=== PATIENT | female | born 1975 | race Caucasian/White ===

== ENCOUNTER 2018-09-03 16:13 | Emergency (ER) | payer BC ==
--- NOTE | 2018-09-03 16:15 | ER Report ---
History and Physical Time Seen By MD: 16:16 HPI/ROS CHIEF COMPLAINT: Fluttering in chest HISTORY OF PRESENT ILLNESS: Pt states that she has had daily diarrhea and nausea for a few weeks. Started yesterday with headache and feeling flushed. Today felt her heart is "fluttering". Pulse is not going fast but it feels irregular. Pt denies cardiac hx. pt does state that she was told she has a nodule on her thyroid but is not on any medications for it. no sick contacts. pt states that when she went up the stairs she was more sob and felt fluttering/discomfort in her chest. REVIEW OF SYSTEMS: Constitutional: No fever, no chills. Eyes: No discharge. ENT: No sore throat. Cardiovascular: +chest pain, + palpitations. Respiratory: No cough, + shortness of breath walking up the stairs. Gastrointestinal: No abdominal pain, no vomiting, + nausea and + diarrhea Genitourinary: No hematuria. Musculoskeletal: No back pain. Skin: No rashes. Neurological: + headache. Allergies: Coded Allergies: No Known Drug Allergies (Unverified , 09/03/18) Past Medical/Surgical History Pmhx: bipolar, nodule on thyroid, liden factor V with dvt Pshx: r knee surgery, hysterectomy, , wisdom teeth Reviewed Nurses Notes: Yes Old Medical Records Reviewed: Yes Hx Smoking: Yes Smoking Status: Current: Every Day Smoker Hx Alcohol Use: Yes (socially) Constitutional Vital Sign - Last 24 Hours 09/03/18 16:21 Temp 98.0 Pulse 78 Resp 18 B/P (MAP) 167/98 Pulse Ox 97 O2 Delivery Room Air Physical Exam General Appearance: The patient is alert, has no immediate need for airway protection and no signs of toxicity. Eyes: Pupils equal and round no pallor or injection, EOMI ENT: no pharyngeal erythema or exudates, Mucous membranes are moist Respiratory: There are no retractions, lungs are clear to auscultation. Cardiovascular: Regular rate and rhythm. pulses are equal and symmetrical Gastrointestinal: Abdomen is soft and non tender, no masses, bowel sounds normal, no guarding, no rigidity or rebound Neurological: Cranial nerves II-XII grossly intact, no sensory or motor loss Skin: Warm and dry, no rashes. Musculoskeletal: Neck is supple non tender, no vertebral tenderness Extremities are nontender, non swollen and have full range of motion. DIFFERENTIAL DIAGNOSIS: After history and physical exam differential diagnosis was considered for dehydrated, electrolyte abnl, arrhythmia, influenza, gastroenteritis, anemia Medical Decision Making Data Points Result Diagram: 09/03/18 1638 09/03/18 1638 Laboratory Hematology Test 09/03/18 00:00 09/03/18 16:30 09/03/18 16:38 Magnesium Level 2.2 mg/dl (1.7-2.2) Influenza Virus Type A (PCR) Negative (NEGATIVE) Influenza Virus Type B (PCR) Negative (NEGATIVE) Red Blood Count 4.96 M/uL (4.17-5.56) Mean Corpuscular Volume 91.5 fL (80.0-96.0) Mean Corpuscular Hemoglobin 32.4 pg (26.0-33.0) Mean Corpuscular Hemoglobin Concent 35.4 g/dL (32.0-36.0) Red Cell Distribution Width 13.4 % (11.5-14.5) Mean Platelet Volume 7.3 fL (7.2-11.1) Neutrophils (%) (Auto) 62.7 % (39.4-72.5) Lymphocytes (%) (Auto) 28.2 % (17.6-49.6) Monocytes (%) (Auto) 7.3 % (4.1-12.4) Eosinophils (%) (Auto) 1.6 % (0.4-6.7) Basophils (%) (Auto) 0.2 % (0.3-1.4) Nucleated RBC Relative Count (auto) 0.0 /100WBC Neutrophils # (Auto) 6.6 K/uL (2.0-7.4) Lymphocytes # (Auto) 3.0 K/uL (1.3-3.6) Monocytes # (Auto) 0.8 K/uL (0.3-1.0) Eosinophils # (Auto) 0.2 K/uL (0.0-0.5) Basophils # (Auto) 0.0 K/uL (0.0-0.1) Nucleated RBC Absolute Count (auto) 0.00 K/uL D-Dimer Quantitative (PE/DVT) 0.50 ug/ml (0-0.50) Sodium Level 138 mmol/L (137-145) Potassium Level 3.3 mmol/L (3.5-5.0) Chloride Level 105 mmol/L (98-107) Carbon Dioxide Level 22 mmol/L (22-31) Blood Urea Nitrogen 13 mg/dl (7-18) Creatinine 0.60 mg/dl (0.52-1.04) Glomerular Filtration Rate Calc > 60.0 Random Glucose 88 mg/dl (75-110) Calcium Level 9.9 mg/dl (8.4-10.2) Total Bilirubin 0.9 mg/dl (0.2-1.3) Aspartate Amino Transf (AST/SGOT) 39 U/L (0-35) Alanine Aminotransferase (ALT/SGPT) 41 U/L (0-56) Alkaline Phosphatase 65 U/L (0-126) Troponin I < 0.012 ng/ml Total Protein 8.1 g/dl (6.3-8.2) Albumin 4.7 g/dl (3.5-5.0) Chemistry Test 09/03/18 00:00 09/03/18 16:30 09/03/18 16:38 Magnesium Level 2.2 mg/dl (1.7-2.2) Influenza Virus Type A (PCR) Negative (NEGATIVE) Influenza Virus Type B (PCR) Negative (NEGATIVE) White Blood Count 10.6 k/uL (4.5-11.0) Red Blood Count 4.96 M/uL (4.17-5.56) Hemoglobin 16.1 g/dL (12.0-16.0) Hematocrit 45.4 % (34.0-47.0) Mean Corpuscular Volume 91.5 fL (80.0-96.0) Mean Corpuscular Hemoglobin 32.4 pg (26.0-33.0) Mean Corpuscular Hemoglobin Concent 35.4 g/dL (32.0-36.0) Red Cell Distribution Width 13.4 % (11.5-14.5) Platelet Count 256 K/uL (150-450) Mean Platelet Volume 7.3 fL (7.2-11.1) Neutrophils (%) (Auto) 62.7 % (39.4-72.5) Lymphocytes (%) (Auto) 28.2 % (17.6-49.6) Monocytes (%) (Auto) 7.3 % (4.1-12.4) Eosinophils (%) (Auto) 1.6 % (0.4-6.7) Basophils (%) (Auto) 0.2 % (0.3-1.4) Nucleated RBC Relative Count (auto) 0.0 /100WBC Neutrophils # (Auto) 6.6 K/uL (2.0-7.4) Lymphocytes # (Auto) 3.0 K/uL (1.3-3.6) Monocytes # (Auto) 0.8 K/uL (0.3-1.0) Eosinophils # (Auto) 0.2 K/uL (0.0-0.5) Basophils # (Auto) 0.0 K/uL (0.0-0.1) Nucleated RBC Absolute Count (auto) 0.00 K/uL D-Dimer Quantitative (PE/DVT) 0.50 ug/ml (0-0.50) Glomerular Filtration Rate Calc > 60.0 Calcium Level 9.9 mg/dl (8.4-10.2) Total Bilirubin 0.9 mg/dl (0.2-1.3) Aspartate Amino Transf (AST/SGOT) 39 U/L (0-35) Alanine Aminotransferase (ALT/SGPT) 41 U/L (0-56) Alkaline Phosphatase 65 U/L (0-126) Troponin I < 0.012 ng/ml Total Protein 8.1 g/dl (6.3-8.2) Albumin 4.7 g/dl (3.5-5.0) Coagulation Test 09/03/18 16:38 D-Dimer Quantitative (PE/DVT) 0.50 ug/ml EKG/Imaging EKG Interpretation nsr @ 70 with no acute changes. ED Course/Re-evaluation ED Course check labs 09/03/2018 5:10:11 pm potassium is low will replace and check magnesium. Pts ekg shows nsr however on monitor pt does throw occasional PVC which she fe els. Pt lives in [place] and will need to follow up with her doctor when she goes home tomorrow and may require a holter. 09/03/2018 5:22:11 pm Magnesium is normal. Pts thyroid study is still pending and will not be back today. She will be called if abnormal. Pt has not felt any fluttering in the last hour. PT states she still has a headache. will medicate with toradol and reglan via her iv Decision to Disposition Date: Sep 03, 2018 Decision to Disposition Time: 17:23 Depart Departure Latest Vital Signs Vital Signs Date Time Temp Pulse Resp B/P (MAP) Pulse Ox O2 Delivery O2 Flow Rate FiO2 09/03/18 16:21 98.0 78 18 167/98 97 Room Air Impression: Primary Impression: Hypokalemia Additional Impression: History of palpitations Condition: Improved Disposition: HOME OR SELF-CARE Patient Instructions: Hypokalemia (ED), Palpitations (ED) Additional Instructions: Follow up with your family doctor when you get back to [place]. If you continue to feel palpitations/fluttering you may require a holter monitor by your family doctor. Your blood work today did show low potassium which we replaced. Your thyroid lab work will not be back today. We will call you if it is abnormal. Problem Qualifiers QUINCY PINTO DO Sep 03, 2018 16:15
--- NOTE | 2018-09-03 16:33 | EKG ---
FACILITY: [facility] PATIENT NAME: MATHEW MONTOYA : [id number] MR: [id number] V: [id number] EXAM DATE: ORDERING PHYSICIAN: QUINCY PINTO TECHNOLOGIST: SARKIS Diallo Reason : HEART FLUTTERING Blood Pressure : / mmHG Vent. Rate : 068 BPM Atrial Rate : 068 BPM P-R Int : 178 ms QRS Dur : 094 ms QT Int : 416 ms P-R-T Axes : 056 -10 037 degrees QTc Int : 442 ms Sinus rhythm Possible left atrial enlargement Left axis deviation No previous ECGs available Confirmed by ANASTASIA GALLARDO ([id number] on 09/04/2018 6:16:54 AM Referred By: TERESA Confirmed By:ANASTASIA GALLARDO
[2018-09-03 16:49] LABS: PLATELET COUNT, AUTOMATED 256 K/uL (150-450)
[2018-09-03] MEDS ORDERED: POTASSIUM CHL 20 MEQ TABCR PO ONE (17:10)
[2018-09-03 17:30] VITALS: BP 130/91
[2018-09-03] MEDS ORDERED: KETOROLAC 30 MG/ML VIAL IVP ONE (17:30)
[2018-09-03] MEDS ORDERED: METOCLOPRAMIDE 10 MG/2 ML SDV IVP ONE (17:30)
== END 2018-09-03 17:50 | disposition home or self-care (01) ==
LOC: ER 16:36
DX: E87.6 Hypokalemia (principal); I49.3 Ventricular premature depolarization; F17.210 Nicotine dependence, cigarettes, uncomplicated
CPT/HCPCS: 83735; 84443; 84484; 85025; 85379; 87502; 93005; 96374; 96375; 99284; J1885; J2765; 82040; 82247; 82310; 82374; 82435; 82565; 82947; 84075; 84132; 84155; 84295; 84450; 84460; 84520